=== PATIENT | female | born 1960 | race Asian ===

== ENCOUNTER 2021-03-16 19:45 | Emergency (ER) | payer OTHER ==
[~2021-03-16] VITALS: Ht 167.6 cm; Wt 97.1 kg
[2021-03-16 20:35] LABS: PLATELET COUNT 170 K/uL (152-353)
[2021-03-16 20:43] LABS: POTASSIUM 4.3 mmol/L (3.6-5.2)
[2021-03-16 21:45] VITALS: BP 168/79; TEMP 97.8
[2021-03-16] MEDS ORDERED: AMLODIPINE BESYLATE PO (22:54)
[2021-03-16] MEDS ORDERED: ELIQUIS5 MG PO (22:55)
[2021-03-16] MEDS ORDERED: ASCORBIC ACD500 MG PO (22:56)
[2021-03-16] MEDS ORDERED: BANOPHEN50 MG PO (22:57)
[2021-03-16] MEDS ORDERED: BENZTROPINE2 MG PO (22:58)
[2021-03-16] MEDS ORDERED: CLON1TAB18 PO (22:59)
[2021-03-16] MEDS ORDERED: DOCU100C10 PO (23:00)
[2021-03-16] MEDS ORDERED: FOLI1TAB26 PO (23:04)
[2021-03-16] MEDS ORDERED: HALO50IN4 IM (23:42)
[2021-03-16] MEDS ORDERED: HALO5TAB10 PO (23:44)
[2021-03-16] MEDS ORDERED: HYDR25TA57 PO (23:45)
[2021-03-16] MEDS ORDERED: METO50TA27 PO (23:46)
[2021-03-16] MEDS ORDERED: TRILEPTAL300 MG PO (23:49)
[2021-03-16] MEDS ORDERED: RISPERDAL3 MG PO (23:50)
[2021-03-16] MEDS ORDERED: SENNA LAX8.6 MG PO (23:52)
[2021-03-16] MEDS ORDERED: LEVO0.0529 PO (23:54)
[2021-03-16] MEDS ORDERED: THEREMS M PO (23:55)
[2021-03-16] MEDS ORDERED: TOLTERODINE TART2 MG PO (23:56)
[2021-03-16] MEDS ORDERED: VALPROIC A250 MG/5 M PO (23:57)
[2021-03-16] MEDS ORDERED: VITAMIN B-12250 MCG PO (23:58)
[2021-03-16] MEDS ORDERED: VITAMIN B650 MG PO (23:59)
[2021-03-17] MEDS ORDERED: VITAMIN D31000 UNI4 PO
[2021-03-17] MEDS ORDERED: ZINC-220220 MG PO (00:01)
== END 2021-03-16 21:45 | disposition still patient (30) ==
LOC: ED 20:01
PROVIDERS: Emergency Medicine Emergency Medical Services
DX: R46.89 Other symptoms and signs involving appearance and behavior (principal); F20.89 Other schizophrenia; Z00.8 Encounter for other general examination
CPT/HCPCS: 36415; 80053; 85027; 87635; 93005; 99283; U0003

== ENCOUNTER 2023-04-08 17:33 | Emergency (ER) | payer OTHER ==
[~2023-04-08] VITALS: Ht 167.6 cm; Wt 121.1 kg
[2023-04-08 17:33] VITALS: BP 164/88; TEMP 97
[~2023-04-08 17:33] MED LIST: AMLODIPINE BESYLATE PO; ASCORBIC ACD500 MG PO; BANOPHEN50 MG PO; BENZTROPINE2 MG PO; BUSP5TAB2 PO; CLON1TAB18 PO; DOCU100C10 PO; ELIQUIS5 MG PO; FOLI1TAB26 PO; HALO50IN4 IM; HALO5TAB10 PO; HYDR25TA57 PO; LEVO0.0529 PO; METO50TA27 PO; OXCARBAZEPIN300 MG PO; PRAZOSIN HCL1 MG PO; RISPERDAL3 MG PO; SENNA LAX8.6 MG PO; SERT50TA PO; THEREMS M PO; TOLTERODINE TART2 MG PO; TRILEPTAL300 MG PO; VALPROIC A250 MG/5 M PO; VITAMIN B-12250 MCG PO; VITAMIN B650 MG PO; VITAMIN D31000 UNI4 PO; ZINC-220220 MG PO
[2023-04-08 17:58] LABS: PLATELET COUNT 226 K/uL (152-353)
[2023-04-08 18:11] LABS: POTASSIUM 4.1 mmol/L (3.6-5.2)
[2023-04-08] MEDS ORDERED: STOOL SOFTNR100 M1 PO (22:16)
[2023-04-08] MEDS ORDERED: FURO40TA93 PO (22:18)
[2023-04-08] MEDS ORDERED: GNP MELATONIN3 MG PO (22:20)
[2023-04-08] MEDS ORDERED: POTASSIUM CHLO20 ME1 PO (22:22)
[2023-04-08] MEDS ORDERED: ZOLOFT25 MG PO (22:23)
[2023-04-08] MEDS ORDERED: APIX1TAB PO (22:27)
[2023-04-08] MEDS ORDERED: OXCARBAZEPIN600 MG PO (22:29)
[2023-04-08] MEDS ORDERED: VALPROIC A250 MG/5 M PO (22:31)
[2023-04-08] MEDS ORDERED: BENZ1TAB43 PO (22:32)
[2023-04-08] MEDS ORDERED: BUSPIRONE10 MG PO (22:33)
[2023-04-08] MEDS ORDERED: CLON1TAB18 PO (22:33)
[2023-04-08] MEDS ORDERED: TYLENOL325 MG PO (22:35)
[2023-04-08] MEDS ORDERED: CROMOLYN SOD4 % OPTH (22:37)
[2023-04-08] MEDS ORDERED: HALO10TA5 PO (22:39)
== END 2023-04-08 19:55 | disposition still patient (30) ==
LOC: ED 17:33
PROVIDERS: Internal Medicine
DX: F22 Delusional disorders (principal)
CPT/HCPCS: 80053; 81002; 85027; 87635; 93005; 99283; U0003

== ENCOUNTER 2023-05-27 20:02 | Inpatient (IN) | payer OTHER ==
[~2023-05-27] VITALS: Ht 170.2 cm; Wt 114.9 kg
[2023-05-27 20:02] VITALS: BP 156/117; TEMP 97
[~2023-05-27 20:02] MED LIST changes: +ACET-206 PO; +APIX1TAB PO; +BENZ1TAB43 PO; +BLOOMIS59 PO; +BUSPIRONE10 MG PO; +CROMOLYN SOD4 % OPTH; +FURO40TA93 PO; +GNP MELATONIN3 MG PO; +HALO10TA5 PO; +MULTTAB52 PO; +NORVASC 5MG TAB PO; +OXCARBAZEPIN600 MG PO; +POTA20TA4 PO; +POTASSIUM CHLO20 ME1 PO; +STOOL SOFTNR100 M1 PO; +TYLENOL325 MG PO; +ZOLOFT25 MG PO
[2023-05-27 20:22] VITALS: BP 156/117
[2023-05-27 20:57] LABS: PLATELET COUNT 206 K/uL (152-353)
[2023-05-27 21:01] LABS: POTASSIUM 4.4 mmol/L (3.6-5.2)
[2023-05-27 22:30] VITALS: BP 146/82
[2023-05-27 23:00] VITALS: BP 153/90
[2023-05-28] VITALS (8 sets, daily range): BP systolic 152–167; BP diastolic 80–113; TEMP 97.4–98.7; Ht 170.2 cm; Wt 114.9 kg
[2023-05-28 07:27] LABS: PLATELET COUNT 191 K/uL (152-353)
[2023-05-28 07:33] LABS: POTASSIUM 4.1 mmol/L (3.6-5.2)
[2023-05-29] VITALS: BP 170/113; TEMP 98.6
[2023-05-29 04:00] VITALS: BP 152/103; TEMP 98.2
[2023-05-29 05:40] LABS: PLATELET COUNT 172 K/uL (152-353)
[2023-05-29 05:58] LABS: POTASSIUM 4.4 mmol/L (3.6-5.2)
[2023-05-29 07:55] VITALS: BP 152/93; TEMP 98.1
[2023-05-29 12:00] VITALS: BP 135/87; TEMP 98.3
[2023-05-29 16:00] VITALS: BP 155/71; TEMP 97.8
[2023-05-29 20:00] VITALS: BP 147/100; TEMP 98.9
[2023-05-30 04:00] VITALS: BP 128/71; TEMP 98.7
[2023-05-30 05:21] LABS: PLATELET COUNT 201 K/uL (152-353)
[2023-05-30 05:44] LABS: POTASSIUM 4.7 mmol/L (3.6-5.2)
[2023-05-30 08:00] VITALS: BP 159/74; TEMP 97.7
[2023-05-30 11:49] VITALS: BP 135/80; TEMP 97.9
[2023-05-30 16:00] VITALS: BP 168/80; TEMP 97.7
[2023-05-30 19:36] VITALS: BP 132/50; TEMP 97.5
[2023-05-30 23:35] VITALS: BP 136/72; TEMP 97.3
[2023-05-31] MEDS ORDERED: METO50TA63 PO (07:42)
[2023-05-31 08:02] VITALS: BP 142/68; TEMP 98.3
== END 2023-05-31 12:05 | disposition other institution (70) | DRG 281 ==
LOC: ED 20:02 → MED/SURG 05-28 08:13
PROVIDERS: Family Medicine; ADMIT Internal Medicine Endocrinology, Diabetes & Metabolism; ATTEND Internal Medicine Endocrinology, Diabetes & Metabolism
DX: I21.4 Non-ST elevation (NSTEMI) myocardial infarction (principal); F20.89 Other schizophrenia; F31.89 Other bipolar disorder; I48.92 Unspecified atrial flutter; N18.4 Chronic kidney disease, stage 4 (severe); Z79.01 Long term (current) use of anticoagulants; E78.49 Other hyperlipidemia; F03.90 Unspecified dementia, unspecified severity, without behavioral disturbance, psychotic disturbance, mood disturbance, and anxiety; I12.9 Hypertensive chronic kidney disease with stage 1 through stage 4 chronic kidney disease, or unspecified chronic kidney disease
CPT/HCPCS: 36415; 80048; 80053; 80164; 81002; 84484; 85027; 87635; 93005; 96372; 96374; 99284; J0515; J1200; J1630; J2060; J2270; J3490; U0003